=== PATIENT | male | born 1995 | race Caucasian/White ===

== ENCOUNTER 2021-05-21 23:12 | Emergency (ER) | payer SELFPAY ==
[2021-05-22] MEDS ORDERED: SILVADENE20 G1 TOP (00:35)
[2021-05-22] MEDS ORDERED: KEFLEX250 MG PO (00:35)
== END 2021-05-22 00:54 | disposition home or self-care (01) ==
LOC: FER 23:12
DX: T22.211A Burn of second degree of right forearm, initial encounter (principal); F17.200 Nicotine dependence, unspecified, uncomplicated; X08.8XXA Exposure to other specified smoke, fire and flames, initial encounter; Y93.G3 Activity, cooking and baking; Y92.009 Unspecified place in unspecified non-institutional (private) residence as the place of occurrence of the external cause; Z88.0 Allergy status to penicillin
CPT/HCPCS: 99283